=== PATIENT | female | born 1945 | race Caucasian/White ===

== ENCOUNTER 2018-10-03 20:09 | Observation (INO) ==
[2018-10-03] MEDS ORDERED: Aspirin 325 MG Tablet PO ONE (20:23)
--- NOTE | 2018-10-03 20:26 | ED ---
HPI General Chief Complaint: Chest Pain Stated Complaint: high bp/neck pain/pressure in chest x3days Time Seen by Provider: 10/03/18 20:23 Source: patient Mode of arrival: ambulatory Limitations: no limitations History of Present Illness HPI narrative: 73-year-old female patient with history of hypertension, diabetes , hypothyroidism, CAD status post stenting, presents to the ER today because she states that she has had several days history of substernal chest discomfort and jaw pain which she rates currently an 8 out of 10. She has been nauseous but she denies any vomiting, shortness of breath, or other symptoms. Related Data Allergies Allergy/AdvReac Type Severity Reaction Status Date / Time iodine Allergy Severe Anaphylaxis Unverified 07/14/17 13:29 potassium iodide Allergy Severe Anaphylaxis Unverified 07/14/17 13:29 povidone-iodine Allergy Severe Anaphylaxis Unverified 07/14/17 13:29 shellfish derived Allergy Severe Anaphylaxis Unverified 07/14/17 13:29 sodium iodide Allergy Severe Anaphylaxis Unverified 07/14/17 13:29 sodium iodide Allergy Severe Anaphylaxis Unverified 07/14/17 13:29 Review of Systems ROS: all other systems reviewed are negative PMFSH History History Provided By: Patient Medical History Medical History CAD (coronary artery disease) (Acute) Diabetes (Acute) HTN (hypertension) (Acute) Social History Social History Recent Travel in [facility] within the Last 8 Weeks: No Recent Out of Country Travel within the Last 8 Weeks: No Exam Narrative Exam Narrative: GENERAL: Well-developed elderly female patient currently in mild to moderate distress. Awake and oriented x3. SKIN: Focused skin assessment warm/dry. HEAD: Atraumatic. Normocephalic. EYES: Pupils equal and round. No scleral icterus. No injection or drainage. ENT: No nasal bleeding or discharge. Mucous membranes pink and moist. NECK: Trachea midline. No JVD. CARDIOVASCULAR: Regular rate and rhythm. No murmur appreciated. RESPIRATORY: No accessory muscle use. Clear to auscultation. Breath sounds equal bilaterally. GASTROINTESTINAL: Abdomen soft, non-tender, nondistended. Hepatic and splenic margins not palpable. MUSCULOSKELETAL: No obvious deformities. No clubbing. No cyanosis. No edema. NEUROLOGICAL: Awake and alert. No obvious cranial nerve deficits. Motor grossly within normal limits. Normal speech. PSYCHIATRIC: Appropriate mood and affect; insight and judgment normal. Course Initial Documented Vital Signs Temperature 99.1 F 10/03/18 20:13 Pulse Rate 80 10/03/18 20:13 Respiratory Rate 16 10/03/18 20:13 Blood Pressure 209/89 H 10/03/18 20:13 Pulse Oximetry 97 10/03/18 20:13 Last Documented Vital Signs Temperature 99.1 F 10/03/18 20:48 Pulse Rate 70 10/03/18 21:09 Respiratory Rate 18 10/03/18 21:09 Blood Pressure 131/66 10/03/18 21:09 Pulse Oximetry 95 10/03/18 21:14 Medical Decision Making MDM Narrative Medical decision making narrative: Patient was given aspirin and nitroglycerin in the ER. Her blood pressure came down her chest pain improved with that. Cardiac enzymes, EKG, chest x-ray were all unremarkable. Troponins are negative. However, considering the patient's cardiac history, plan would be to admit her to chest pain center for further cardiac workup. Case is discussed with PA for Dr. Gore for admission. Medical Screen Exam Complete: Yes Emergency Medical Condition: Yes Differential Diagnosis Differential Diagnosis: ACS versus unstable angina anxiety attack versus pneumonia Lab Data Lab results reviewed: Yes I reviewed the patient's lab results. Result diagrams: 10/03/18 20:20 10/03/18 20:20 Lab Results 10/03/18 10/03/18 Range/Units 20:20 20:20 CBC w Diff Slide review pending WBC 11.1 H (4.0-11.0) th/mm3 RBC 4.66 (4.00-5.30) mil/mm3 Hgb 14.0 (11.6-15.3) gm/dL Hct 41.1 (35.0-46.0) % MCV 88.3 (80.0-100.0) fL MCH 30.0 (27.0-34.0) pg MCHC 34.0 (32.0-36.0) % RDW 12.9 (11.6-17.2) % Plt Count 259 (150-450) th/mm3 MPV 9.4 (7.0-11.0) fL Neut % (Auto) 38.0 (16.0-70.0) % Lymph % (Auto) 48.3 H (9.0-44.0) % [place] % (Auto) 8.1 H (0.0-8.0) % Eos % (Auto) 5.0 H (0.0-4.0) % Baso % (Auto) 0.6 (0.0-2.0) % Neut # (Auto) 4.2 (1.8-7.7) th/mm3 Lymph # (Auto) 5.3 H (1.0-4.8) th/mm3 [place] # (Auto) 0.9 (0.0-0.9) th/mm3 Eos # (Auto) 0.6 H (0.0-0.4) th/mm3 Baso # (Auto) 0.1 (0.0-0.2) th/mm3 Differential Comment . Sodium 137 (136-145) meq/L Potassium 4.2 (3.5-5.1) meq/L Chloride 103 (98-107) meq/L Carbon Dioxide 24.1 (21.0-32.0) meq/L Anion Gap 10 (5-15) meq/L BUN 17 (7-18) mg/dL Creatinine 1.20 H (0.50-1.00) mg/dL Estimated GFR 44 L (>89) mL/min Random Glucose 105 (74-106) mg/dL Calcium 8.9 (8.5-10.1) mg/dL Total Bilirubin 0.3 (0.2-1.0) mg/dL AST 20 (15-37) U/L ALT 31 (10-53) U/L Alkaline Phosphatase 117 (45-117) U/L Troponin I Less than 0.02 L (0.02-0.05) ng/mL Total Protein 7.3 (6.4-8.2) g/dL Albumin 3.8 (3.4-5.0) g/dL Imaging Data Attestation: I personally reviewed and interpreted this imaging study as follows : Radiologist's impression: Chest X-Ray 10/03/18 20:23 CONCLUSION: No evidence of acute cardiopulmonary disease. ECG Data Attestation: I personally reviewed and interpreted this ECG as follows: Interpretation: EKG shows NSR, no ST elevation or depression, and no arrhythmias. No significant T-wave inversions. Discharge Plan Discharge Disposition Patient Disposition: 30 Still Patient Discharge Condition Condition: Stable Discharge Details Anticipated Discharge Date: 10/03/18 Diagnosis: Chest pain Physicians Team ED Provider: Perla Hernandez Primary Care Provider: UNKNOWN, Discharge Instructions Patient Printed Instructions: Chest Pain (ED) Discharge Interventions Interventions: Vital Signs Last Done: 10/03/18 21:09 Status ED Status: With Doctor
--- NOTE | 2018-10-03 20:54 | XR ---
EXAM DATE: 10/03/2018 8:40 PM EST AGE/SEX: 73 years / Female INDICATIONS: High blood pressure. CLINICAL DATA: This is the patient's initial encounter. Patient reports that signs and symptoms have been present for 3 days and indicates a pain score of 0/10. MEDICAL/SURGICAL HISTORY: Hypertension. None. COMPARISON: No prior exams available for comparison. FINDINGS: A single AP view of the chest demonstrates the lungs to be symmetrically aerated without evidence of mass, infiltrate or effusion. The cardiomediastinal contours are unremarkable. Osseous structures a re intact. CONCLUSION: No evidence of acute cardiopulmonary disease. Electronically signed by: Chirag Lynn MD 10/03/2018 8:53 PM EST
[2018-10-03 20:58] LABS: Chloride 103 meq/L (98-107); Potassium 4.2 meq/L (3.5-5.1); Sodium 137 meq/L (136-145)
[2018-10-03 20:59] LABS: Baso # (Auto) 0.1 th/mm3 (0.0-0.2); Baso % (Auto) 0.6 % (0.0-2.0); Eos # (Auto) 0.6 th/mm3 (0.0-0.4); Hematocrit 41.1 % (35.0-46.0); Lymph # (Auto) 5.3 th/mm3 (1.0-4.8); Lymph % (Auto) 48.3 % (9.0-44.0); Mean Corpuscular Volume 88.3 fL (80.0-100.0); Mean Platelet Volume 9.4 fL (7.0-11.0); Mono # (Auto) 0.9 th/mm3 (0.0-0.9); Mono % (Auto) 8.1 % (0.0-8.0); Neut # (Auto) 4.2 th/mm3 (1.8-7.7); Platelet Count 259 th/mm3 (150-450); Red Blood Count 4.66 mil/mm3 (4.00-5.30); Red Cell Distribution Width 12.9 % (11.6-17.2); White Blood Count 11.1 th/mm3 (4.0-11.0)
[2018-10-03 21:02] LABS: Albumin 3.8 g/dL (3.4-5.0); Anion Gap 10 meq/L (5-15); Blood Urea Nitrogen 17 mg/dL (7-18); Calcium 8.9 mg/dL (8.5-10.1); Carbon Dioxide 24.1 meq/L (21.0-32.0); Glucose,Random 105 mg/dL (74-106)
[2018-10-03 21:05] LABS: Alanine Aminotransferase 31 U/L (10-53); Aspartate Aminotransferase 20 U/L (15-37); Glomerular Filtration Rate 44 mL/min (>89)
[2018-10-03 21:07] LABS: Total Protein 7.3 g/dL (6.4-8.2)
[2018-10-03 21:08] LABS: Alkaline Phosphatase 117 U/L (45-117)
[2018-10-03] MEDS ORDERED: Acetaminophen 500 MG Tablet PO ONE (21:12)
[2018-10-03] MEDS ORDERED: Acetaminophen 500 MG Tablet PO PRN (21:29)
[2018-10-03] MEDS ORDERED: Morphine Inj 4 MG/ML Vial IV.PUSH PRN (21:29)
[2018-10-03 21:35] LABS: Atypical Lymphs 10 % (0-0); Eosinophils 4 % (0-4); Lymphocytes 50 % (9-44); Monocytes 4 % (0-8); Platelet Estimate Normal (Normal); Platelet Morphology Normal (Normal); Tear Drop Cells 1+
[2018-10-03] MEDS ORDERED: Dextrose 50% in Water 50 ML Vial IV.PUSH PRN (21:35)
[2018-10-04 00:28] LABS: Creatine Kinase 47 U/L (26-192)
[2018-10-04 03:30] LABS: Creatine Kinase 58 U/L (26-192)
[2018-10-04] MEDS: Insulin NovoLOG Aspart Correctional Sugar Inj SQ SCH ×3 (06:35→12:40)
--- NOTE | 2018-10-04 08:07 | P.HP ---
History of Present Illness Primary Care Physician: UNKNOWN Chief Complaint: chest pain History of Present Illness: This 73-year-old female patient with a known medical history of hypertension, diabetes, hypothyroidism, CAD with previous cardiac stent placement who presented to the ED with complaints of shoulder, neck and chest pain. Patient states that the pain started in her left shoulder and neck, was painful especially with movement and radiated down her left chest. She states that the pain in her chest is tight in nature, rated an 8 out of 10 at its worst on pain scale, admits to associated nausea and shortness of breath and The chest pain worsened yesterday and lasted roughly an hour, and relieved with nitroglycerin administration. Patient denies any known aggravating factors of the chest pain. She does follow with Dr. Matthews, cardiology, last seen 6 months ago, does not admit to any changes to her medications recently. She did undergo a cardiac stress test over one year ago which was reportedly negative. She has a history of [place] 11 years ago with CAD and cardiac stents. - Diagnosis (1) Chest pain Review of Systems All other systems reviewed negative except as stated in HPI PMFSH - History History Provided By: Patient - Medical History Medical History: Medical History (Last Reviewed 10/04/18 @ 13:34 by Nalini Michele) CAD (coronary artery disease) Diabetes HTN (hypertension) - Surgical History Surgical History: Surgical History (Last Updated 10/04/18 @ 13:35 by Nalini Michele) History of heart artery stent Hx of cholecystectomy S/P partial hysterectomy - Family History Family History: Family History (Last Updated 10/04/18 @ 13:35 by Nalini Michele) Other Family history non-contributory - Social History I have reviewed the patient's Social History: Yes - Tobacco History Second Hand Smoke Exposure: No Tobacco Use In Past 30 Days: No Smoking Status: Never smoker - Alcohol History How Often Do You Have a Drink Containing Alcohol: Never - Substance Use History Substance History: No History of Abuse - Travel History Recent Travel in the [place] Within the Last 8 Weeks: No Recent Travel Out of the Country Within the Last 8 Weeks: No Medications and Allergies Active Medications: Active Medications Acetaminophen (Tylenol) 500 mg PO Q4H PRN PRN Reason: HEADACHE Last Admin: 10/04/18 06:35 Dose: 500 mg Hydrocodone Bitart/Acetaminophen ([place] 7.5/325) 1 tab PO Q4H PRN PRN Reason: PAIN SCALE 1 TO 7 Amlodipine Besylate (Norvasc) 5 mg PO DAILY [facility] Aspirin (Ecotrin) 81 mg PO BID [facility] Atenolol (Tenormin) 25 mg PO DAILY [facility] Atorvastatin Calcium (Lipitor) 40 mg PO DAILY [facility] Dextrose (D50w Vial) 50 ml IV.PUSH UNSCH PRN PRN Reason: PER HYPOGLYCEMIA PROTOCOL Glucagon (Glucagon Inj) 1 mg OTHER PRN PRN PRN Reason: for Hypoglycemia Protocol Heparin Sodium (Porcine) (Heparin Inj) 5,000 units SQ Q8HR [facility] Insulin Aspart (Novolog Insulin Correctional Sugar Inj) 0 unit SQ ACHS AND 3AM GABO; Protocol Last Admin: 10/04/18 07:44 Dose: Not Given Levothyroxine Sodium (Synthroid) 25 mcg PO DAILY@0600 [facility] Last Admin: 10/04/18 06:36 Dose: 25 mcg Lisinopril (Prinivil) 25 mg PO DAILY [facility] Miscellaneous (Pill Splitter) 1 each OTHER UNSCH PRN PRN Reason: SEE LABEL COMMENTS Morphine Sulfate (Morphine Inj) 2 mg IV.PUSH Q4H PRN PRN Reason: PAIN SCALE 8 TO 10 Nitroglycerin (Nitrostat Sl) 0.4 mg SL Q5M PRN PRN Reason: CHEST PAIN Ondansetron HCl (Zofran Inj) 4 mg IV.PUSH Q6H PRN PRN Reason: NAUSEA Pantoprazole Sodium (Protonix) 40 mg PO DAILY [facility] Paroxetine HCl (Paxil) 20 mg PO DAILY [facility] Sodium Chloride (Ns Flush) 2 ml IV.FLUSH UNSCH PRN PRN Reason: FLUSH AFTER USING IV ACCESS Allergies Allergy/AdvReac Type Severity Reaction Status Date / Time iodine Allergy Severe Anaphylaxis Unverified 07/14/17 13:29 potassium iodide Allergy Severe Anaphylaxis Unverified 07/14/17 13:29 povidone-iodine Allergy Severe Anaphylaxis Unverified 07/14/17 13:29 shellfish derived Allergy Severe Anaphylaxis Unverified 07/14/17 13:29 sodium iodide Allergy Severe Anaphylaxis Unverified 07/14/17 13:29 sodium iodide Allergy Severe Anaphylaxis Unverified 07/14/17 13:29 Home Medications Medication Instructions Recorded Confirmed Type amlodipine 5 mg PO DAILY 10/03/18 10/03/18 History aspirin [Aspir-81] 81 mg PO BID 10/03/18 10/03/18 History atenolol 25 mg PO DAILY 10/03/18 10/03/18 History atorvastatin 40 mg PO DAILY 10/03/18 10/03/18 History levothyroxine [Synthroid] 25 mcg PO DAILY 10/03/18 10/03/18 History lisinopril 25 mg PO DAILY 10/03/18 10/03/18 History metformin 500 mg PO BID 10/03/18 10/03/18 History omeprazole 40 mg PO DAILY 10/03/18 10/03/18 History paroxetine HCl 20 mg PO DAILY 10/03/18 10/03/18 History Exam Vital signs: Vital Signs 10/03/18 20:13 10/03/18 20:25 10/03/18 20:48 Temperature 99.1 F 99.1 F Pulse Rate 80 80 Respiratory Rate 16 20 Blood Pressure 209/89 H 209/89 H Pulse Oximetry 97 95 97 10/03/18 21:09 10/03/18 21:14 10/03/18 21:47 Temperature Pulse Rate 70 67 Respiratory Rate 18 Blood Pressure 131/66 121/60 Pulse Oximetry 95 95 10/03/18 22:00 10/03/18 22:50 10/04/18 00:00 Temperature 96.5 F L Pulse Rate 68 77 68 Respiratory Rate 18 Blood Pressure 127/61 150/80 H Pulse Oximetry 93 L 10/04/18 02:20 10/04/18 04:00 10/04/18 07:45 Temperature 95.5 F L Pulse Rate 72 Respiratory Rate 18 Blood Pressure 139/68 Pulse Oximetry 95 95 93 L Intake & Output 10/03/18 10/04/18 10/04/18 18:59 06:59 18:59 Intake Total 200 / 200 Balance 200 / 200 Weight 104.3 kg Intake: Oral 200 / 200 Other: # Voids 2 Date of Last Bowel Movement 10/03/18 Weight On Admission 104.9 kg Narrative: GENERAL: Well-developed, well-nourished patient in [facility]. SKIN: Warm and dry. No rash. HEAD: Normocephalic. Atraumatic. EYES: Pupils equal and round. No scleral icterus. No injection or drainage. ENT: No nasal bleeding or discharge. Mucous membranes pink and moist. NECK: Supple. Trachea midline. CARDIOVASCULAR: Regular rate and rhythm. S1, S2 noted. No murmur appreciated. No chest pain to palpation RESPIRATORY: No accessory muscle use. Clear to auscultation. Breath sounds equal bilaterally. GASTROINTESTINAL: Abdomen soft, non-tender, nondistended. Normoactive bowel sounds x4. MUSCULOSKELETAL: No obvious deformities. Extremities without clubbing, cyanosis , or edema. Motion intact. NEUROLOGICAL: Awake and alert. No obvious cranial nerve deficits. Motor grossly within normal limits. 5/5 muscle strength in bilateral upper and lower extremities. Normal speech. PSYCHIATRIC: Appropriate mood and affect; insight and judgment normal. Results - Labs CBC & Chem 7: 10/03/18 20:20 10/03/18 20:20 Labs: Laboratory Results - last 24 hr 10/03/18 10/03/18 10/03/18 20:20 20:20 23:25 CBC w Diff Slide review pending WBC 11.1 H RBC 4.66 Hgb 14.0 Hct 41.1 MCV 88.3 MCH 30.0 MCHC 34.0 RDW 12.9 Plt Count 259 MPV 9.4 Neut % (Auto) 38.0 Lymph % (Auto) 48.3 H [place] % (Auto) 8.1 H Eos % (Auto) 5.0 H Baso % (Auto) 0.6 Neut # (Auto) 4.2 Lymph # (Auto) 5.3 H [place] # (Auto) 0.9 Eos # (Auto) 0.6 H Baso # (Auto) 0.1 WBC Differential Manual diff final Seg Neuts % (Manual) 32 Lymphocytes % (Manual) 50 H Atypical Lymphs % (Man) 10 H Monocytes % (Manual) 4 Eosinophils % (Manual) 4 Abs Neuts (Manual) 3.6 Differential Comment . Platelet Estimate Normal Platelet Morphology Normal Tear Drop Cells 1+ H Sodium 137 Potassium 4.2 Chloride 103 Carbon Dioxide 24.1 Anion Gap 10 BUN 17 Creatinine 1.20 H Estimated GFR 44 L POC Glucose Random Glucose 105 Calcium 8.9 Total Bilirubin 0.3 AST 20 ALT 31 Alkaline Phosphatase 117 Total Creatine Kinase 47 Troponin I Less than 0.02 L Less than 0.02 L Total Protein 7.3 Albumin 3.8 10/04/18 10/04/18 10/04/18 02:34 02:35 07:32 CBC w Diff WBC RBC Hgb Hct MCV MCH MCHC RDW Plt Count MPV Neut % (Auto) Lymph % (Auto) [place] % (Auto) Eos % (Auto) Baso % (Auto) Neut # (Auto) Lymph # (Auto) [place] # (Auto) Eos # (Auto) Baso # (Auto) WBC Differential Seg Neuts % (Manual) Lymphocytes % (Manual) Atypical Lymphs % (Man) Monocytes % (Manual) Eosinophils % (Manual) Abs Neuts (Manual) Differential Comment Platelet Estimate Platelet Morphology Tear Drop Cells Sodium Potassium Chloride Carbon Dioxide Anion Gap BUN Creatinine Estimated GFR POC Glucose 112 H 122 H Random Glucose Calcium Total Bilirubin AST ALT Alkaline Phosphatase Total Creatine Kinase 58 Troponin I Less than 0.02 L Total Protein Albumin - Imaging Impressions Chest X-Ray 10/03/18 20:23 CONCLUSION: No evidence of acute cardiopulmonary disease. Caprini VTE Risk Assessment Caprini VTE Risk Assessment: Moderate/High Risk (score >= 2) Caprini Risk Assessment Model: Point Value = 1 Point Value = 2 Point Value = 3 Point Value = 5 Age 41-60 Minor surgery BMI > 25 kg/m2 Swollen legs Varicose veins or History of unexplained or recurrent spontaneous Oral contraceptives or hormone replacement Sepsis (< 1 month) Serious lung disease, including pneumonia (< 1 month) Abnormal pulmonary function Acute myocardial infarction Congestive heart failure (< 1 month) History of inflammatory bowel disease Medical patient at bed rest Age 61-74 Arthroscopic surgery Major open surgery (> 45 min) Laparoscopic surgery (> 45 min) Malignancy Confined to bed (> 72 hours) Immobilizing plaster cast Central venous access Age >= 75 History of VTE Family history of VTE Factor V Leiden Prothrombin [id number] Lupus anticoagulant Anticardiolipin antibodies Elevated serum homocysteine Heparin-induced thrombocytopenia Other congenital or acquired thrombophilia Stroke (< 1 month) Elective arthroplasty Hip, pelvis, or leg fracture Acute spinal cord injury (< 1 month) Prophylaxis Regimen: Total Risk Factor Score Risk Level Prophylaxis Regimen 0-1 Low Early ambulation 2 Moderate Order ONE of the following: *Sequential Compression Device (SCD) *Heparin 5000 units SQ BID 3-4 Higher Order ONE of the following medications: *Heparin 5000 units SQ TID *Enoxaparin/Lovenox 40 mg SQ daily (WT < 150 kg, CrCl > 30 mL/min) *Enoxaparin/Lovenox 30 mg SQ daily (WT < 150 kg, CrCl > 10-29 mL/min) *Enoxaparin/Lovenox 30 mg SQ BID (WT < 150 kg, CrCl > 30 mL/min) AND/OR *Sequential Compression Device (SCD) 5 or more Highest Order ONE of the following medications: *Heparin 5000 units SQ TID (Preferred with Epidurals) *Enoxaparin/Lovenox 40 mg SQ daily (WT < 150 kg, CrCl > 30 mL/min) *Enoxaparin/Lovenox 30 mg SQ daily (WT < 150 kg, CrCl > 10-29 mL/min) *Enoxaparin/Lovenox 30 mg SQ BID (WT < 150 kg, CrCl > 30 mL/min) AND *Sequential Compression Device (SCD) Assessment and Plan - Assessment (1) Chest pain Code(s): R07.9 - Chest pain, unspecified Status: Acute Plan: Patient admitted to the chest pain center for observation. Serial EKGs and serial troponins ordered for ruling out ACS purposes. Serial troponins flat. EKG reviewed showing normal sinus rhythm with no ST changes to indicate any ischemia. Chest x-ray reviewed showing no acute cardiopulmonary disease. CBC and BMP reviewed, essentially unremarkable. Continue on cardiac telemetry overnight, no arrhythmias noted. Cholesterol is stable per patient's report, PCP checks it regularly. She is on a statin. At the time of assessment patient 's symptoms have improved. Patient underwent a cardiac nuclear stress test, findings with adequate EF and no ischemia. Patient updated about results, will discharge home to follow-up with PCP and cardiology. Continue on home medications. Heart healthy diet as tolerated. Activity as tolerated. Patient is stable at this time and agreeable to plan.
[2018-10-04] MEDS ORDERED: Ketorolac Inj 30 MG/ML (IVP) Vial IV.PUSH PRN (08:23)
[2018-10-04 08:44] VITALS: RESP 20; O2SAT 96
[2018-10-04] MEDS ORDERED: Atenolol 25 MG Tablet PO SCH (09:00)
[2018-10-04] MEDS ORDERED: Lisinopril 10 MG Tablet PO SCH (09:00)
[2018-10-04] MEDS ORDERED: amLODIPine 5 MG Tablet PO SCH (09:00)
[2018-10-04] MEDS ORDERED: Heparin - SQ 10,000 UNITS/ML Vial SQ SCH (09:00)
[2018-10-04] MEDS ORDERED: Aspirin 325 MG Tablet PO SCH (09:00)
[2018-10-04] MEDS ORDERED: Regadenoson Inj 0.4 MG/5 ML Syringe IV.PUSH ONE (10:43)
--- NOTE | 2018-10-04 12:14 | NM ---
EXAM DATE: 10/04/2018 11:52 AM EST AGE/SEX: 73 years / Female INDICATIONS:Angina. Coronary artery disease Substernal chest pain. CLINICAL DATA: This is the patient's initial encounter. Patient reports that signs and symptoms have been present for 1 day and indicates a pain score of 8/10. MEDICAL/SURGICAL HISTORY: Diabetes mellitus type II. Hypertension. Coronary artery stent. COMPARISON: No prior exams available for comparison. DOSE: 11 mCi Tc 99m Myoview at rest 35 mCi [id number] at stress 0.4 mg Lexiscan STRESS SYMPTOMS: Stomach cramps. EJECTION FRACTION: 69 % TECHNIQUE: The patient underwent pharmacologic stress with infusion of prescribed dose. Continuous ECG tracing was monitored during stress. Gated SPECT imaging was performed after stress and conventi onal SPECT imaging was performed at rest. The examination was performed on a SPECT/CT scanner, both attenuation and non-corrected datasets were reviewed. FINDINGS: Distribution: The maximum perfused segment at stress is in the anterior wall. Perfusion Study: The pattern of perfusion at stress is within normal limits. Gated Study: There are intact wall motion and wall thickening without hypokinetic or dyskinetic segm ents. The ejection fraction is calculated at 69%. RISK CATEGORY: Low (<1% Annual Motality Rate) CONCLUSION: 1. No evidence of fixed or stress-induced reversible perfusion abnormalities. 2. Normal wall motion and ejection fraction. Electronically signed by: Jarrod Dominique MD 10/04/2018 12:12 PM EST
[2018-10-04 12:46] VITALS: BP 158/72; PULSE 65; TEMP 97.7
--- NOTE | 2018-10-04 21:07 | ECG ---
Date Performed: 10/04/2018 Time Performed: 02:22:38 PTAGE: 73 years EKG: Sinus rhythm NORMAL ECG PREVIOUS TRACING : 10/03/2018 22.37 Since the previous tracing, no significant change noted DOCTOR: Terell Day Interpretating Date/Time 10/04/2018 21:06:12
--- NOTE | 2018-10-04 21:12 | ECG ---
Date Performed: 10/03/2018 Time Performed: 22:37:05 PTAGE: 73 years EKG: Sinus rhythm NORMAL ECG PREVIOUS TRACING : 10/03/2018 20.21 Since the previous tracing, no significant change noted DOCTOR: Terell Day Interpretating Date/Time 10/04/2018 21:11:01
--- NOTE | 2018-10-04 21:15 | ECG ---
Date Performed: 10/03/2018 Time Performed: 20:21:57 PTAGE: 73 years EKG: Sinus rhythm NORMAL ECG Compared to PREVIOUS TRACING , T wave changes no longer present DOCTOR: Terell Day Interpretating Date/Time 10/04/2018 21:13:28
--- NOTE | 2018-10-05 07:36 | TR ---
Date Performed: 10/04/2018 Time Performed: 10:57:30 DOCTOR: Ayanna García DRUG LIST: CLINICAL HISTORY: REASON FOR TEST: REASON FOR ENDING: OBSERVATION: CONCLUSION: Lexiscan stress test was performed under standard four minute protocol. Radionuclid e was injected one minute prior to ending the test. No electrocardiographic abormalities were present to suggest ischemia. Nuclear imaging and interpretation are pending. COMMENTS: Lexiscan stress test was performed under standard four minute protocol. Radionuclide was injected one minute prior to ending the test. No electrocardiographic abormalities were present t o suggest ischemia. Nuclear imaging and interpretation are pending.
== END 2018-10-04 14:10 | disposition home or self-care (01) ==
LOC: PHEDA 20:09 → PHED 20:09 → PH3 22:16
PROVIDERS: ADMIT Internal Medicine; ATTEND Internal Medicine